=== PATIENT | male | born 1940 | race Caucasian/White ===

== ENCOUNTER → 2024-01-05 07:34 | Outpatient (REF) | payer MEDICARE, SELFPAY | LOC: DHCBC/DCA 07:34 | PROVIDERS: ATTENDING PHYSICIAN Internal Medicine; FAMILY PHYSICIAN Internal Medicine | DX: I25.10 Atherosclerotic heart disease of native coronary artery without angina pectoris (principal); Z95.5 Presence of coronary angioplasty implant and graft; E11.59 Type 2 diabetes mellitus with other circulatory complications; R06.09 Other forms of dyspnea | CPT/HCPCS: 78452; 93017; A9500 ==

== ENCOUNTER → 2024-01-17 14:41 | Outpatient (REF) | payer MEDICARE, SELFPAY | LOC: RCS 14:41 | PROVIDERS: ATTENDING PHYSICIAN Internal Medicine; FAMILY PHYSICIAN Internal Medicine | DX: I25.10 Atherosclerotic heart disease of native coronary artery without angina pectoris (principal); I77.810 Thoracic aortic ectasia; I35.0 Nonrheumatic aortic (valve) stenosis; R06.09 Other forms of dyspnea | CPT/HCPCS: 93306 ==